=== PATIENT | male | born 1965 | race Two or more races ===

== ENCOUNTER 2022-07-21 10:45 | Inpatient (IN) | payer MEDICAID, OTHER ==
[~2022-07-21] VITALS: Ht 157.5 cm; Wt 62.6 kg
[2022-07-21] MEDS ORDERED: SODIUM CHLORIDE 0.9% 1,000 ML IVB ONE (11:00)
[2022-07-21 11:39] LABS: Hemoglobin 13.7 g/dL (13.5-17.5)
[2022-07-21 11:44] LABS: Hematocrit 43.1 % (41.0-53.0); Mean Corpuscular Hemoglobin 31.6 pg (28.0-32.0); Mean Corpuscular Hgb Conc. 31.8 g/dL (32.0-36.0); Mean Corpuscular Volume 99.4 fL (80.0-100.0); Red Blood Cells 4.33 10^6/uL (4.5-5.90); Red Cell Distribution Width 13.4 % (11.8-14.3)
[2022-07-21 11:49] LABS: White Blood Cell 53.1 10^3/uL (4.4-10.8)
[2022-07-21 11:50] LABS: Basophils % (manual) 0 (0.0-2.0); Blast Cells 0; Eosinophils % (manual) 0 (0-7); Metamyelocytes % 0; Promyelocytes % 0; Reactive Lymphocytes 0
[2022-07-21 11:55] LABS: INR 1.83 (0.9-1.15); Partial Thromboplastin Time 42.9 sec (24.6-33.4)
[2022-07-21 11:57] LABS: Albumin 2.3 g/dL (3.4-5.0); Anion Gap 23 (5-15); Blood Urea Nitrogen 20 mg/dL (7-18); Calcium 8.7 mg/dL (8.5-10.1); Carbon Dioxide 10 mmol/L (21-32); Chloride 94 mmol/L (98-107); Magnesium 2.4 mg/dL (1.6-2.6); Sodium 127 mmol/L (136-145)
[2022-07-21 12:02] LABS: Alanine Aminotransferase 46 U/L (16-61); Alkaline Phosphatase 404 U/L (45-117); Aspartate Aminotransferase 45 U/L (15-37); BUN/Creatinine Ratio 14.8; Bilirubin, Total 0.8 mg/dL (0.2-1.0); Blood Alcohol < 3.0 mg/dL (0-5); GFR African American 72 mL/min; GFR Non-African American 60 mL/min; Total Protein 7.9 g/dL (6.4-8.2)
[2022-07-21 12:40] LABS: Glucose 446 mg/dL (74-106)
[2022-07-21] MEDS ORDERED: CLINDAMYCIN 600MG IV 50 ML IV ONE (12:45)
[2022-07-21] MEDS ORDERED: ONDANSETRON HCL 4 MG/2 ML VIAL IV ONE (12:45)
[2022-07-21 12:49] LABS: Band Neutrophils % (manual) 35; Lymphocytes % (manual) 3 (10.0-50.0); Monocytes % (manual) 8 (0-12); Myelocytes % 2
[2022-07-21] MEDS ORDERED: INSULIN LANTUS (GLARGINE) 1 /0.01ml (100units/ml) SC ONE (13:00)
[2022-07-21] MEDS ORDERED: DEXTROSE (50%) 50ML SYRG IV PRN (13:00)
[2022-07-21] MEDS ORDERED: cefTRIAXone 1GM/50ML D5W 50 ML IV ONE (13:00)
[2022-07-21] MEDS ORDERED: SODIUM CHLORIDE 0.9% 1,000 ML IV ONE (13:00)
[2022-07-21] MEDS ORDERED: InsuLIN R (HUMAN) 100 UNITS in SODIUM CHL 0.9% 99 ML IV SCH (13:00)
[2022-07-21] MEDS ORDERED: InsuLIN REG 1unit/0.01ml Soln (100units/ml) IV ONE (13:00)
[2022-07-21] MEDS: POTASSIUM CHL 20MEQ/100ML 100 ML IV SCH ×2 (13:10→15:08)
[2022-07-21] MEDS: ACCU-CHEK COMFORT CURVE STRIP VI SCH ×7 (13:30→22:22)
[2022-07-21] MEDS ORDERED: DOCUSATE SOD 100 MG CAP PO PRN (14:15)
[2022-07-21] MEDS ORDERED: MORPHINE SULFATE INJ 2 MG/ml SYRG IV PRN (14:15)
[2022-07-21] MEDS ORDERED: HYDROcodone-ACET 5/325MG TAB PO PRN (14:15)
[2022-07-21] MEDS ORDERED: NITROGLYCERIN 0.4 MG SL TAB SL PRN (14:15)
[2022-07-21] MEDS ORDERED: ONDANSETRON HCL 4 MG/2 ML VIAL IV PRN (14:15)
[2022-07-21 14:40] LABS: Urine Bacteria NONE SEEN /hpf (None Seen); Urine Blood 1+ /uL (Negative); Urine Hyaline Cast MOD /lpf (0 - 2); Urine Mucus FEW (None Seen); Urine Specific Gravity 1.016 (1.001-1.035); Urine WBC 3 /hpf (0 - 3)
[2022-07-21] MEDS: SOD CHL 0.9%/ KCL 40MEQ 1,000 ML IV SCH (17:10)
[2022-07-21 20:23] LABS: Calcium 8.1 mg/dL (8.5-10.1); Potassium 3.1 mmol/L (3.5-5.1)
[2022-07-22] VITALS (8 sets, daily range): BP systolic 95–111; BP diastolic 63–80
[2022-07-22] MEDS: ACCU-CHEK COMFORT CURVE STRIP VI SCH ×10 (00:03→22:42)
[2022-07-22] MEDS: SOD CHL 0.9%/ KCL 40MEQ 1,000 ML IV SCH ×2 (01:08→06:55)
[2022-07-22] MEDS ORDERED: DEXTROSE (50%) 50ML SYRG IV PRN ×2 (01:15→15:00)
[2022-07-22 03:29] LABS: Hematocrit 40.6 % (41.0-53.0); Hemoglobin 13.9 g/dL (13.5-17.5); Mean Corpuscular Hemoglobin 32.6 pg (28.0-32.0); Mean Corpuscular Hgb Conc. 34.2 g/dL (32.0-36.0); Mean Corpuscular Volume 95.3 fL (80.0-100.0); Red Blood Cells 4.26 10^6/uL (4.5-5.90); Red Cell Distribution Width 13.2 % (11.8-14.3)
[2022-07-22 03:43] LABS: Albumin 1.7 g/dL (3.4-5.0); BUN/Creatinine Ratio 37.5; Calcium 7.9 mg/dL (8.5-10.1); Potassium 3.2 mmol/L (3.5-5.1)
[2022-07-22 03:45] LABS: Bilirubin, Total 0.6 mg/dL (0.2-1.0); Total Protein 6.6 g/dL (6.4-8.2)
[2022-07-22 03:48] LABS: Lactic Acid w/Reflex 2.2 mmol/L (0.4-2.0)
[2022-07-22 03:49] LABS: INR 1.56 (0.9-1.15); Partial Thromboplastin Time 36.2 sec (24.6-33.4)
[2022-07-22] MEDS ORDERED: VANCOMYCIN PER PHARMACY 0 MG IV SCH (04:15)
[2022-07-22] MEDS ORDERED: SODIUM CHLORIDE 0.9% 500 ML IV ONE (04:15)
[2022-07-22] MEDS ORDERED: HEPARIN SODIUM (PORCINE) 5000 UNITS/ML 1ML VIAL SC SCH (04:15)
[2022-07-22 04:29] LABS: White Blood Cell 38.6 10^3/uL (4.4-10.8)
[2022-07-22] MEDS ORDERED: VANCOMYCIN 1GM/250ML 250 ML IV ONE (04:30)
[2022-07-22] MEDS: InsuLIN REG 1unit/0.01ml Soln (100units/ml) SC SCH ×3 (04:32→11:47)
[2022-07-22 04:40] LABS: Basophils % (manual) 0 (0.0-2.0); Blast Cells 0; Eosinophils % (manual) 0 (0-7); Metamyelocytes % 0; Myelocytes % 0; Promyelocytes % 0; Reactive Lymphocytes 0
[2022-07-22] MEDS: cefTRIAXone 1GM/50ML D5W 50 ML IV SCH ×2 (05:23→11:08)
[2022-07-22] MEDS ORDERED: IOHEXOL 350 MG/ML 100ML IJ ONE (06:10)
[2022-07-22 06:39] LABS: Band Neutrophils % (manual) 23; Lymphocytes % (manual) 5 (10.0-50.0); Monocytes % (manual) 8 (0-12)
[2022-07-22] MEDS ORDERED: HEPARIN DRIP/D5W 100UNITS/ML 250 ML IV SCH (08:15)
[2022-07-22] MEDS ORDERED: FUROSEMIDE 20 MG/2 ML VIAL IV ONE (08:45)
[2022-07-22 08:49] LABS: Hemoglobin 14.6 g/dL (13.5-17.5)
[2022-07-22 08:51] LABS: Hematocrit 42.9 % (41.0-53.0); Mean Corpuscular Hemoglobin 32.4 pg (28.0-32.0); Mean Corpuscular Hgb Conc. 34.1 g/dL (32.0-36.0); Red Blood Cells 4.51 10^6/uL (4.5-5.90); Red Cell Distribution Width 13.1 % (11.8-14.3)
[2022-07-22 08:55] LABS: Basophils % (manual) 0 (0.0-2.0); Blast Cells 0; Eosinophils % (manual) 0 (0-7); Metamyelocytes % 0; Myelocytes % 0; Promyelocytes % 0; Reactive Lymphocytes 0; White Blood Cell 34.8 10^3/uL (4.4-10.8)
[2022-07-22 08:56] LABS: INR 1.71 (0.9-1.15); Partial Thromboplastin Time 38.6 sec (24.6-33.4)
[2022-07-22] MEDS ORDERED: cefTRIAXone 1GM/50ML D5W 50 ML IV SCH (09:00)
[2022-07-22 09:28] LABS: Band Neutrophils % (manual) 38; Lymphocytes % (manual) 5 (10.0-50.0); Monocytes % (manual) 4 (0-12)
[2022-07-22] MEDS ORDERED: FUROSEMIDE 20 MG/2 ML VIAL IV SCH (10:00)
[2022-07-22] MEDS: SOD CHL 0.9%/ KCL 20MEQ 1,000 ML IV SCH ×2 (10:30→18:30)
[2022-07-22] MEDS: POTASSIUM CHL 20MEQ/100ML 100 ML IV SCH ×3 (10:50→23:46)
[2022-07-22] MEDS: PANTOPRAZOLE 40 MG/10 ML VIAL INJ IV SCH (11:08)
[2022-07-22] MEDS: INSULIN LANTUS (GLARGINE) 1 /0.01ml (100units/ml) SC SCH (11:42)
[2022-07-22] MEDS: ALBUMIN 25% 100 ML IV SCH ×2 (12:37→13:40)
[2022-07-22] MEDS ORDERED: InsuLIN R (HUMAN) 100 UNITS in SODIUM CHL 0.9% 99 ML IV SCH (13:30)
[2022-07-22] MEDS ORDERED: InsuLIN REG 1unit/0.01ml Soln (100units/ml) ONE (13:55)
[2022-07-22] MEDS ORDERED: ALBUMIN 25% 100 ML IV SCH (14:00)
[2022-07-22] MEDS: VANCOMYCIN 1GM/250ML 250 ML IV SCH (17:00)
[2022-07-22 17:46] LABS: INR 1.72 (0.9-1.15); Partial Thromboplastin Time 45.7 sec (24.6-33.4)
[2022-07-22] MEDS: HEPARIN DRIP/D5W 100UNITS/ML 250 ML IV SCH ×2 (18:15→18:50)
[2022-07-22] MEDS: cefTAZidime 2GM/NS 50 ML IV SCH (22:28)
[2022-07-22 23:05] LABS: BUN/Creatinine Ratio 34.5; Calcium 7.8 mg/dL (8.5-10.1)
[2022-07-22 23:10] LABS: Potassium 2.9 mmol/L (3.5-5.1)
[2022-07-23] VITALS (23 sets, daily range): BP systolic 88–125; BP diastolic 57–89
[2022-07-23 01:02] LABS: BUN/Creatinine Ratio 31.3; Calcium 7.6 mg/dL (8.5-10.1)
[2022-07-23 01:07] LABS: Potassium 2.9 mmol/L (3.5-5.1)
[2022-07-23 01:10] LABS: INR 1.56 (0.9-1.15)
[2022-07-23 01:12] LABS: Partial Thromboplastin Time 72.9 sec (24.6-33.4)
[2022-07-23] MEDS ORDERED: D5W/SOD CHLO 0.9% 1,000 ML IV SCH (02:00)
[2022-07-23] MEDS ORDERED: DEXTROSE (50%) 50ML SYRG IV PRN ×2 (02:00→10:15)
[2022-07-23] MEDS: ACCU-CHEK COMFORT CURVE STRIP VI SCH ×9 (02:00→23:00)
[2022-07-23] MEDS: POTASSIUM CHL 20MEQ/100ML 100 ML IV SCH (02:02)
[2022-07-23] MEDS: SOD CHL 0.9%/ KCL 20MEQ 1,000 ML IV SCH (02:33)
[2022-07-23] MEDS: InsuLIN REG 1unit/0.01ml Soln (100units/ml) SC SCH ×5 (04:57→22:00)
[2022-07-23] MEDS: VANCOMYCIN 1GM/250ML 250 ML IV SCH ×2 (05:25→18:23)
[2022-07-23 05:43] LABS: Hemoglobin 13.5 g/dL (13.5-17.5)
[2022-07-23 05:46] LABS: Hematocrit 39.7 % (41.0-53.0); Mean Corpuscular Hemoglobin 32.1 pg (28.0-32.0); Mean Corpuscular Volume 94.5 fL (80.0-100.0); White Blood Cell 25.5 10^3/uL (4.4-10.8)
[2022-07-23 05:52] LABS: Basophils % (manual) 0 (0.0-2.0); Blast Cells 0; Eosinophils % (manual) 0 (0-7); Metamyelocytes % 0; Myelocytes % 0; Promyelocytes % 0; Reactive Lymphocytes 0
[2022-07-23 05:57] LABS: Potassium 3.3 mmol/L (3.5-5.1)
[2022-07-23 06:10] LABS: Albumin 2.1 g/dL (3.4-5.0); BUN/Creatinine Ratio 32.1; Bilirubin, Total 0.8 mg/dL (0.2-1.0); Calcium 7.5 mg/dL (8.5-10.1); Magnesium 1.5 mg/dL (1.6-2.6); Phosphorus 2.1 mg/dL (2.5-4.90); Total Protein 5.7 g/dL (6.4-8.2)
[2022-07-23] MEDS: cefTAZidime 2GM/NS 50 ML IV SCH ×3 (06:12→22:59)
[2022-07-23 06:14] LABS: INR 1.58 (0.9-1.15); Partial Thromboplastin Time 67.6 sec (24.6-33.4)
[2022-07-23] MEDS ORDERED: InsuLIN REG 1unit/0.01ml Soln (100units/ml) SC SCH (07:00)
[2022-07-23] MEDS: PANTOPRAZOLE 40 MG/10 ML VIAL INJ IV SCH (09:54)
[2022-07-23] MEDS: INSULIN LANTUS (GLARGINE) 1 /0.01ml (100units/ml) SC SCH (10:19)
[2022-07-23] MEDS ORDERED: D5W/ SOD CHL 0.9%/KCL 20MEQ 1,000 ML IV ONE (10:34)
[2022-07-23] MEDS: D5W/ SOD CHL 0.9%/KCL 20MEQ 1,000 ML IV SCH ×2 (10:45→21:02)
[2022-07-23 11:04] LABS: INR 1.5 (0.9-1.15); Partial Thromboplastin Time 63.3 sec (24.6-33.4)
[2022-07-23 11:31] LABS: Band Neutrophils % (manual) 43; Lymphocytes % (manual) 8 (10.0-50.0); Monocytes % (manual) 5 (0-12)
[2022-07-23] MEDS: ACETAMINOPHEN 325 MG TAB PO PRN (12:40)
[2022-07-23] MEDS: HEPARIN DRIP/D5W 100UNITS/ML 250 ML IV SCH (14:34)
[2022-07-23 16:41] LABS: BUN/Creatinine Ratio 27.3; Calcium 7.5 mg/dL (8.5-10.1)
[2022-07-23 17:03] LABS: INR 1.54 (0.9-1.15); Partial Thromboplastin Time 69.2 sec (24.6-33.4)
[2022-07-23 17:09] LABS: Potassium 2.8 mmol/L (3.5-5.1)
[2022-07-23] MEDS ORDERED: POTASSIUM EFFERVESENT TAB 25 MEQ GT ONE (18:00)
[2022-07-24] VITALS (22 sets, daily range): BP systolic 83–121; BP diastolic 52–85
[2022-07-24] MEDS: VANCOMYCIN 1GM/250ML 250 ML IV SCH (04:49)
[2022-07-24] MEDS: D5W/ SOD CHL 0.9%/KCL 20MEQ 1,000 ML IV SCH ×3 (06:08→23:49)
[2022-07-24] MEDS: cefTAZidime 2GM/NS 50 ML IV SCH ×3 (06:08→22:04)
[2022-07-24] MEDS: ACCU-CHEK COMFORT CURVE STRIP VI SCH ×4 (06:57→22:04)
[2022-07-24] MEDS: InsuLIN REG 1unit/0.01ml Soln (100units/ml) SC SCH ×4 (06:59→22:10)
[2022-07-24 08:30] LABS: Hemoglobin 14.1 g/dL (13.5-17.5); Red Cell Distribution Width 13.5 % (11.8-14.3)
[2022-07-24 08:32] LABS: Hematocrit 42.2 % (41.0-53.0); Mean Corpuscular Hemoglobin 31.9 pg (28.0-32.0); Mean Corpuscular Hgb Conc. 33.5 g/dL (32.0-36.0); Mean Corpuscular Volume 95.4 fL (80.0-100.0); Red Blood Cells 4.43 10^6/uL (4.5-5.90); White Blood Cell 20.6 10^3/uL (4.4-10.8)
[2022-07-24 08:45] LABS: Basophils % (manual) 0 (0.0-2.0); Blast Cells 0; Metamyelocytes % 0; Myelocytes % 0; Promyelocytes % 0; Reactive Lymphocytes 0
[2022-07-24 08:47] LABS: Potassium 3.3 mmol/L (3.5-5.1)
[2022-07-24 08:57] LABS: Albumin 1.8 g/dL (3.4-5.0); BUN/Creatinine Ratio 26.9; Bilirubin, Total 1.2 mg/dL (0.2-1.0); Calcium 7.7 mg/dL (8.5-10.1); Magnesium 1.9 mg/dL (1.6-2.6); Total Protein 6.1 g/dL (6.4-8.2)
[2022-07-24 09:07] LABS: INR 1.47 (0.9-1.15); Partial Thromboplastin Time 53.8 sec (24.6-33.4)
[2022-07-24] MEDS: ACETAMINOPHEN 325 MG TAB PO PRN ×2 (11:03→20:34)
[2022-07-24] MEDS: PANTOPRAZOLE 40 MG/10 ML VIAL INJ IV SCH (11:05)
[2022-07-24] MEDS: HEPARIN DRIP/D5W 100UNITS/ML 250 ML IV SCH (11:21)
[2022-07-24] MEDS: POTASSIUM CHL 20MEQ/100ML 100 ML IV SCH ×2 (11:33→14:48)
[2022-07-24] MEDS: INSULIN LANTUS (GLARGINE) 1 /0.01ml (100units/ml) SC SCH (11:34)
[2022-07-24 12:31] LABS: Band Neutrophils % (manual) 33; Eosinophils % (manual) 1 (0-7); Lymphocytes % (manual) 3 (10.0-50.0); Monocytes % (manual) 3 (0-12)
[2022-07-24] MEDS ORDERED: LIDOCAINE W/ EPINEPHRINE 1% 20ML VIAL ONE (14:01)
[2022-07-24] MEDS ORDERED: BUPIVACAINE 0.25% INJ 50ML VIAL ONE (14:02)
[2022-07-24] MEDS ORDERED: MORPHINE SULFATE INJ 2 MG/ml SYRG ONE (14:45)
[2022-07-24 18:32] LABS: INR 1.54 (0.9-1.15); Partial Thromboplastin Time 62.7 sec (24.6-33.4)
[2022-07-24] MEDS ORDERED: VANCOMYCIN 1GM/250ML 250 ML IV SCH (19:00)
[2022-07-25] VITALS: BP 91/53
[2022-07-25 00:30] VITALS: BP 83/54
== END 2022-07-25 00:45 | disposition short-term general hospital (02) | DRG 720 ==
LOC: ER 10:45 → EDBD 10:45 → OVERFLOW 14:15 → ICU CENTRL 07-22 14:13
PROVIDERS: ADMIT Nurse Practitioner Family; ATTEND Nurse Practitioner Acute Care
PROC: 0S9C3ZX Drainage of Right Knee Joint, Percutaneous Approach, Diagnostic (ICD-10-PCS; principal; 2022-07-23)
DX: A41.9 Sepsis, unspecified organism (principal); J96.01 Acute respiratory failure with hypoxia; I26.09 Other pulmonary embolism with acute cor pulmonale; G93.41 Metabolic encephalopathy; E11.10 Type 2 diabetes mellitus with ketoacidosis without coma; E46 Unspecified protein-calorie malnutrition; E87.1 Hypo-osmolality and hyponatremia; D75.839 Thrombocytosis, unspecified; E86.0 Dehydration; E87.6 Hypokalemia; M00.9 Pyogenic arthritis, unspecified; R65.20 Severe sepsis without septic shock; Z20.822 Contact with and (suspected) exposure to COVID-19; J90 Pleural effusion, not elsewhere classified; J98.11 Atelectasis; R79.89 Other specified abnormal findings of blood chemistry; I50.811 Acute right heart failure; N40.0 Benign prostatic hyperplasia without lower urinary tract symptoms; L03.113 Cellulitis of right upper limb; L03.115 Cellulitis of right lower limb; I27.29 Other secondary pulmonary hypertension; N47.1 Phimosis; Z68.25 Body mass index [BMI] 25.0-25.9, adult; Z86.711 Personal history of pulmonary embolism; Z79.01 Long term (current) use of anticoagulants
CPT/HCPCS: 36415; 36600; 70450; 71045; 71275; 73120; 73562; 73700; 74176; 80048; 80053; 80202; 80320; 81001; 82010; 82140; 82805; 82962; 83036; 83605; 83735; 83880; 84100; 85007; 85025; 85027; 85379; 85610; 85652; 85730; 86141; 86850; 86900; 86901; 87040; 87070; 87075; 87081; 87086; 87088; 87205; 87426; 89051; 89060; 93005; 93306; 93970; 96361; 96365; 96366; 96367; 96368; 96372; 96375; 99291; C9113; G0378; J0696; J0713; J1815; J3480; J3490; P9047

== ENCOUNTER 2022-08-03 15:10 | Inpatient (IN) | payer MEDICAID ==
[~2022-08-03] VITALS: Ht 157.5 cm; Wt 57.8 kg
[2022-08-03 22:00] VITALS: BP 101/70
[2022-08-03] MEDS ORDERED: MORPHINE SULFATE INJ 2 MG/ml SYRG IV PRN (23:30)
[2022-08-03] MEDS ORDERED: DEXTROSE (50%) 50ML SYRG IV PRN (23:30)
[2022-08-03] MEDS ORDERED: ONDANSETRON HCL 4 MG/2 ML VIAL IV PRN (23:30)
[2022-08-03] MEDS ORDERED: CEFTRIAXONE SODIUM 2 GM in D5W 5% 100 ML IV SCH (23:58)
[2022-08-04] MEDS ORDERED: cefTRIAXone 2 GM VL IV ONE (01:16)
[2022-08-04 01:29] LABS: INR 1.16 (0.9-1.15)
[2022-08-04] MEDS: CEFTRIAXONE SODIUM 2 GM in D5W 5% 100 ML IV SCH ×2 (01:30→20:47)
[2022-08-04 05:00] VITALS: BP 96/64
[2022-08-04] MEDS: InsuLIN REG 1unit/0.01ml Soln (100units/ml) SC SCH ×4 (06:13→22:50)
[2022-08-04] MEDS: ACCU-CHEK COMFORT CURVE STRIP VI SCH ×4 (06:13→22:00)
[2022-08-04 06:27] LABS: Basophils # (auto) 0.1 10 ^3/uL (0-0.2); Eosinophils # (auto) 0 10 ^3/uL (0-0.8); Eosinophils % (auto) 0.1 % (0.0-7.0); Lymphocytes # (auto) 2.3 10 ^3/uL (0.4-5.4); Monocytes # (auto) 0.6 10 ^3/uL (0-1.3); White Blood Cell 13.1 10^3/uL (4.4-10.8)
[2022-08-04 06:30] LABS: Basophils % (auto) 0.6 % (0.0-2.0); Hematocrit 24.8 % (41.0-53.0); Hemoglobin 8.2 g/dL (13.5-17.5); Lymphocytes % (auto) 17.3 % (10.0-50.0); Mean Corpuscular Hemoglobin 30.8 pg (28.0-32.0); Mean Corpuscular Hgb Conc. 33.2 g/dL (32.0-36.0); Monocytes % (auto) 4.6 % (0.0-12.0); Neutrophils # (auto) 10.1 10 ^3/uL (1.6-8.6); Neutrophils % (auto) 77.4 % (37.0-80.0); Red Blood Cells 2.66 10^6/uL (4.5-5.90); Red Cell Distribution Width 14.4 % (11.8-14.3)
[2022-08-04 06:34] LABS: Albumin 1.4 g/dL (3.4-5.0); Calcium 7.3 mg/dL (8.5-10.1); Potassium 4.1 mmol/L (3.5-5.1)
[2022-08-04 06:36] LABS: BUN/Creatinine Ratio 18.6 (10.0-20.0)
[2022-08-04 06:39] LABS: Bilirubin, Total 0.6 mg/dL (0.2-1.0); Total Protein 6.6 g/dL (6.4-8.2)
[2022-08-04 08:30] VITALS: BP 98/65
[2022-08-04] MEDS ORDERED: ENOXAPARIN SOD 100 MG/1 ML SYRINGE SC SCH (10:00)
[2022-08-04] MEDS ORDERED: PANTOPRAZOLE 40 MG/10 ML VIAL INJ IV SCH (10:00)
[2022-08-04] MEDS ORDERED: ENOXAPARIN SOD 60 MG/0.6 ML SYRINGE SC SCH (10:00)
[2022-08-04] MEDS: MUPIROCIN 2% OINT 15gm or 22gm TOP SCH ×2 (11:10→22:00)
[2022-08-04 12:30] VITALS: BP 104/69
[2022-08-04 16:50] VITALS: BP 115/77
[2022-08-04 22:00] VITALS: BP 94/51
[2022-08-04] MEDS: APIXABAN 5 MG TAB PO SCH (22:50)
[2022-08-04] MEDS: INSULIN LANTUS (GLARGINE) 1 /0.01ml (100units/ml) SC SCH (23:03)
[2022-08-05 05:00] VITALS: BP 105/73
[2022-08-05] MEDS: InsuLIN REG 1unit/0.01ml Soln (100units/ml) SC SCH ×4 (06:18→21:55)
[2022-08-05] MEDS: ACCU-CHEK COMFORT CURVE STRIP VI SCH ×4 (06:18→22:00)
[2022-08-05 08:30] VITALS: BP 110/75
[2022-08-05] MEDS: APIXABAN 5 MG TAB PO SCH ×2 (10:27→21:59)
[2022-08-05] MEDS: MUPIROCIN 2% OINT 15gm or 22gm TOP SCH ×2 (10:29→21:59)
[2022-08-05 12:30] VITALS: BP 101/68
[2022-08-05 12:50] VITALS: BP 101/68
[2022-08-05 16:50] VITALS: BP 97/64
[2022-08-05] MEDS: CEFTRIAXONE SODIUM 2 GM in D5W 5% 100 ML IV SCH (21:59)
[2022-08-05 22:00] VITALS: BP 91/53
[2022-08-05] MEDS: INSULIN LANTUS (GLARGINE) 1 /0.01ml (100units/ml) SC SCH (22:01)
[2022-08-06 05:00] VITALS: BP 104/64
[2022-08-06] MEDS: ACCU-CHEK COMFORT CURVE STRIP VI SCH ×4 (06:55→22:00)
[2022-08-06] MEDS: InsuLIN REG 1unit/0.01ml Soln (100units/ml) SC SCH ×4 (06:55→22:57)
[2022-08-06] MEDS ORDERED: LACTULOSE 20Gm/30ML SOLN PO ONE (08:45)
[2022-08-06] MEDS ORDERED: LOPERAMIDE HCL 2 MG CAP/TAB PO PRN (08:45)
[2022-08-06 09:00] VITALS: BP 87/55
[2022-08-06] MEDS: APIXABAN 5 MG TAB PO SCH ×2 (10:41→22:23)
[2022-08-06] MEDS: MUPIROCIN 2% OINT 15gm or 22gm TOP SCH ×2 (10:44→22:58)
[2022-08-06 13:00] VITALS: BP 136/94
[2022-08-06 17:00] VITALS: BP 108/69
[2022-08-06 22:00] VITALS: BP 98/60
[2022-08-06] MEDS: CEFTRIAXONE SODIUM 2 GM in D5W 5% 100 ML IV SCH (22:40)
[2022-08-06] MEDS: INSULIN LANTUS (GLARGINE) 1 /0.01ml (100units/ml) SC SCH (22:58)
[2022-08-07 05:00] VITALS: BP 105/71
[2022-08-07] MEDS: ACCU-CHEK COMFORT CURVE STRIP VI SCH ×4 (06:19→21:25)
[2022-08-07] MEDS: InsuLIN REG 1unit/0.01ml Soln (100units/ml) SC SCH ×4 (06:30→21:48)
[2022-08-07 09:00] VITALS: BP 88/60
[2022-08-07 09:42] LABS: Eosinophils # (auto) 0 10 ^3/uL (0-0.8); Eosinophils % (auto) 0.3 % (0.0-7.0); Hemoglobin 8.6 g/dL (13.5-17.5); Lymphocytes # (auto) 2.3 10 ^3/uL (0.4-5.4); Monocytes # (auto) 0.7 10 ^3/uL (0-1.3); Red Cell Distribution Width 14.5 % (11.8-14.3)
[2022-08-07 09:44] LABS: Basophils # (auto) 0.1 10 ^3/uL (0-0.2); Basophils % (auto) 0.8 % (0.0-2.0); Hematocrit 26.1 % (41.0-53.0); Lymphocytes % (auto) 15.4 % (10.0-50.0); Mean Corpuscular Hemoglobin 30.2 pg (28.0-32.0); Mean Corpuscular Hgb Conc. 32.9 g/dL (32.0-36.0); Mean Corpuscular Volume 91.9 fL (80.0-100.0); Monocytes % (auto) 4.8 % (0.0-12.0); Neutrophils # (auto) 11.7 10 ^3/uL (1.6-8.6); Neutrophils % (auto) 78.7 % (37.0-80.0); Red Blood Cells 2.84 10^6/uL (4.5-5.90); White Blood Cell 14.8 10^3/uL (4.4-10.8)
[2022-08-07 10:02] LABS: Potassium 4.1 mmol/L (3.5-5.1)
[2022-08-07 10:06] LABS: BUN/Creatinine Ratio 16.9 (10.0-20.0); Calcium 7.7 mg/dL (8.5-10.1)
[2022-08-07] MEDS: MUPIROCIN 2% OINT 15gm or 22gm TOP SCH ×2 (12:13→21:25)
[2022-08-07] MEDS: APIXABAN 5 MG TAB PO SCH ×2 (12:24→21:05)
[2022-08-07 13:00] VITALS: BP 100/73
[2022-08-07 17:00] VITALS: BP 100/62
[2022-08-07] MEDS: CEFTRIAXONE SODIUM 2 GM in D5W 5% 100 ML IV SCH (21:04)
[2022-08-07] MEDS: INSULIN LANTUS (GLARGINE) 1 /0.01ml (100units/ml) SC SCH (21:47)
[2022-08-07 22:15] VITALS: BP 97/64
[2022-08-08 05:48] VITALS: BP 99/67
[2022-08-08] MEDS: ACCU-CHEK COMFORT CURVE STRIP VI SCH ×4 (06:19→21:23)
[2022-08-08] MEDS: InsuLIN REG 1unit/0.01ml Soln (100units/ml) SC SCH ×4 (06:28→21:23)
[2022-08-08 08:42] VITALS: BP 99/66
[2022-08-08] MEDS: APIXABAN 5 MG TAB PO SCH ×2 (12:18→21:11)
[2022-08-08] MEDS: MUPIROCIN 2% OINT 15gm or 22gm TOP SCH ×2 (12:18→21:11)
[2022-08-08 12:50] VITALS: BP 99/68
[2022-08-08 16:49] VITALS: BP 98/66
[2022-08-08] MEDS: CEFTRIAXONE SODIUM 2 GM in D5W 5% 100 ML IV SCH (21:10)
[2022-08-08] MEDS: INSULIN LANTUS (GLARGINE) 1 /0.01ml (100units/ml) SC SCH (21:22)
[2022-08-08 22:05] VITALS: BP 96/60
[2022-08-09 05:53] VITALS: BP 107/73
[2022-08-09] MEDS: ACCU-CHEK COMFORT CURVE STRIP VI SCH ×4 (06:14→22:00)
[2022-08-09] MEDS: InsuLIN REG 1unit/0.01ml Soln (100units/ml) SC SCH ×4 (06:15→22:27)
[2022-08-09 09:00] VITALS: BP 93/62
[2022-08-09] MEDS: APIXABAN 5 MG TAB PO SCH ×2 (12:38→21:32)
[2022-08-09] MEDS: MUPIROCIN 2% OINT 15gm or 22gm TOP SCH ×2 (12:39→22:34)
[2022-08-09 12:55] VITALS: BP 103/69
[2022-08-09] MEDS: ACETAMINOPHEN 325 MG TAB PO PRN (14:32)
[2022-08-09 16:59] VITALS: BP 101/68
[2022-08-09] MEDS: Juven Fruit Punch Powder PACKET 28.8gm PO SCH (18:16)
[2022-08-09] MEDS: CEFTRIAXONE SODIUM 2 GM in D5W 5% 100 ML IV SCH (21:32)
[2022-08-09 22:00] VITALS: BP 98/61
[2022-08-09] MEDS: INSULIN LANTUS (GLARGINE) 1 /0.01ml (100units/ml) SC SCH (22:32)
[2022-08-10] VITALS (7 sets, daily range): BP systolic 89–105; BP diastolic 55–74
[2022-08-10] MEDS: InsuLIN REG 1unit/0.01ml Soln (100units/ml) SC SCH ×4 (06:22→22:00)
[2022-08-10] MEDS: ACCU-CHEK COMFORT CURVE STRIP VI SCH ×4 (06:23→22:02)
[2022-08-10] MEDS: Juven Fruit Punch Powder PACKET 28.8gm PO SCH ×2 (08:49→17:35)
[2022-08-10] MEDS: Pro-Stat SF 30ml Vanilla PO SCH (08:50)
[2022-08-10] MEDS: APIXABAN 5 MG TAB PO SCH ×2 (10:03→22:02)
[2022-08-10] MEDS ORDERED: HYDR-4902 PO ×2 (11:19)
[2022-08-10] MEDS ORDERED: APIX5TAB PO ×2 (11:19)
[2022-08-10] MEDS: INSULIN LANTUS (GLARGINE) 1 /0.01ml (100units/ml) SC SCH (22:00)
[2022-08-10] MEDS: CEFTRIAXONE SODIUM 2 GM in D5W 5% 100 ML IV SCH (22:00)
[2022-08-11 05:00] VITALS: BP 98/57
[2022-08-11] MEDS: InsuLIN REG 1unit/0.01ml Soln (100units/ml) SC SCH ×4 (06:25→21:52)
[2022-08-11] MEDS: ACCU-CHEK COMFORT CURVE STRIP VI SCH ×4 (06:26→21:48)
[2022-08-11 09:00] VITALS: BP 94/63
[2022-08-11] MEDS: Juven Fruit Punch Powder PACKET 28.8gm PO SCH ×2 (09:35→19:02)
[2022-08-11] MEDS: APIXABAN 5 MG TAB PO SCH ×2 (09:35→21:37)
[2022-08-11] MEDS: ACETAMINOPHEN 325 MG TAB PO PRN (09:35)
[2022-08-11] MEDS: Pro-Stat SF 30ml Vanilla PO SCH (09:36)
[2022-08-11 13:00] VITALS: BP 90/56
[2022-08-11 16:55] VITALS: BP 91/53
[2022-08-11 20:00] VITALS: BP 97/61
[2022-08-11] MEDS: CEFTRIAXONE SODIUM 2 GM in D5W 5% 100 ML IV SCH (21:00)
[2022-08-11] MEDS: INSULIN LANTUS (GLARGINE) 1 /0.01ml (100units/ml) SC SCH (21:50)
[2022-08-11 22:24] VITALS: BP 97/61
[2022-08-12 05:00] VITALS: BP 100/67
[2022-08-12] MEDS: InsuLIN REG 1unit/0.01ml Soln (100units/ml) SC SCH ×4 (06:13→22:06)
[2022-08-12] MEDS: ACCU-CHEK COMFORT CURVE STRIP VI SCH ×4 (06:14→22:19)
[2022-08-12] MEDS: Juven Fruit Punch Powder PACKET 28.8gm PO SCH ×2 (08:00→18:00)
[2022-08-12] MEDS: Pro-Stat SF 30ml Vanilla PO SCH (10:00)
[2022-08-12] MEDS: ACETAMINOPHEN 325 MG TAB PO PRN (10:35)
[2022-08-12] MEDS: APIXABAN 5 MG TAB PO SCH ×2 (10:35→22:20)
[2022-08-12 12:20] VITALS: BP 101/63
[2022-08-12 16:33] VITALS: BP 103/61
[2022-08-12 22:00] VITALS: BP 97/54
[2022-08-12] MEDS: INSULIN LANTUS (GLARGINE) 1 /0.01ml (100units/ml) SC SCH (22:17)
[2022-08-13] MEDS: CEFTRIAXONE SODIUM 2 GM in D5W 5% 100 ML IV SCH ×2 (02:00→21:05)
[2022-08-13 05:00] VITALS: BP 97/63
[2022-08-13] MEDS: InsuLIN REG 1unit/0.01ml Soln (100units/ml) SC SCH ×4 (05:51→21:45)
[2022-08-13] MEDS: ACCU-CHEK COMFORT CURVE STRIP VI SCH ×4 (05:55→21:34)
[2022-08-13 08:10] VITALS: BP 94/63
[2022-08-13 08:30] VITALS: BP 95/63
[2022-08-13] MEDS: APIXABAN 5 MG TAB PO SCH ×2 (09:40→21:05)
[2022-08-13 12:30] VITALS: BP 97/57
[2022-08-13] MEDS: Juven Fruit Punch Powder PACKET 28.8gm PO SCH ×2 (13:18→18:45)
[2022-08-13] MEDS: Pro-Stat SF 30ml Vanilla PO SCH (13:18)
[2022-08-13 17:10] VITALS: BP 97/59
[2022-08-13] MEDS: INSULIN LANTUS (GLARGINE) 1 /0.01ml (100units/ml) SC SCH (21:44)
[2022-08-13 22:00] VITALS: BP 99/62
[2022-08-14 05:00] VITALS: BP 94/53
[2022-08-14] MEDS: ACCU-CHEK COMFORT CURVE STRIP VI SCH ×2 (06:01→11:34)
[2022-08-14] MEDS: InsuLIN REG 1unit/0.01ml Soln (100units/ml) SC SCH ×2 (06:01→11:43)
[2022-08-14 08:00] VITALS: BP 91/52
[2022-08-14] MEDS: Juven Fruit Punch Powder PACKET 28.8gm PO SCH (08:02)
[2022-08-14] MEDS: Pro-Stat SF 30ml Vanilla PO SCH (08:03)
[2022-08-14 09:00] VITALS: BP 91/52
[2022-08-14] MEDS: APIXABAN 5 MG TAB PO SCH (09:13)
[2022-08-14] MEDS ORDERED: APIX5TAB PO (10:19)
[2022-08-14] MEDS ORDERED: DOXY-346 PO (10:19)
[2022-08-14] MEDS ORDERED: RIFA300C3 PO (10:19)
[2022-08-14] MEDS ORDERED: PANT40T PO (10:19)
[2022-08-14] MEDS ORDERED: SUCR1TAB22 PO (10:19)
[2022-08-14 13:12] VITALS: BP 94/62
== END 2022-08-14 14:45 | disposition home or self-care (01) | DRG 344 ==
LOC: EAST 20:38 → TELE-EAST 23:50
PROVIDERS: ADMIT Nurse Practitioner Acute Care; ATTEND Family Medicine
DX: M00.9 Pyogenic arthritis, unspecified (principal); I26.99 Other pulmonary embolism without acute cor pulmonale; E43 Unspecified severe protein-calorie malnutrition; L89.313 Pressure ulcer of right buttock, stage 3; N17.9 Acute kidney failure, unspecified; E11.22 Type 2 diabetes mellitus with diabetic chronic kidney disease; L89.013 Pressure ulcer of right elbow, stage 3; D64.9 Anemia, unspecified; D72.829 Elevated white blood cell count, unspecified; E61.1 Iron deficiency; I12.9 Hypertensive chronic kidney disease with stage 1 through stage 4 chronic kidney disease, or unspecified chronic kidney disease; N18.9 Chronic kidney disease, unspecified; L89.892 Pressure ulcer of other site, stage 2; K59.00 Constipation, unspecified; E78.5 Hyperlipidemia, unspecified; R74.8 Abnormal levels of other serum enzymes; Z68.23 Body mass index [BMI] 23.0-23.9, adult
CPT/HCPCS: 36415; 71045; 80048; 80053; 82962; 85025; 85610; 86850; 86900; 86901; 87081; 87426; 93005; 97110; 97116; 97163; 97530; C9113; G0378; J0696; J1815; J7060